=== PATIENT | male | born 1985 | race Caucasian/White ===

== ENCOUNTER 2021-06-20 23:32 | Emergency (ER) | payer SELFPAY ==
[~2021-06-20] VITALS: Ht 175.3 cm; Wt 86.3 kg
[2021-06-21] MEDS ORDERED: NYST15CR TP (00:47)
--- NOTE | 2021-06-21 00:47 | PHYS DOC ---
Past Medical History Past Surgical History: No Surgical History Smoking Status: Never Smoker Alcohol Use: None General Adult EDM: Chief Complaint: SKIN PROBLEM HPI: HPI: Patient is a 36 year old male who presents to the ED today complaining of a rash in between his legs, and groin symptoms began 2 days ago. Denies any fever. Denies any urinary symptoms. Review of Systems: Review of Systems: Constitutional: Denies fever or chills. [] : Denies dysuria. [] Musculoskeletal: Denies back pain or joint pain. [] Integument: Reports rash between the legs and groin region Neurologic: Denies headache, focal weakness or sensory changes. [] Psychiatric: Denies depression or anxiety. [] Heart Score: C/O Chest Pain: N/A Risk Factors: Risk Factors: DM, Current or recent (<one month) smoker, HTN, HLP, family history of CAD, obesity. Risk Scores: Score 0 - 3: 2.5% MACE over next 6 weeks - Discharge Home Score 4 - 6: 20.3% MACE over next 6 weeks - Admit for Clinical Observation Score 7 - 10: 72.7% MACE over next 6 weeks - Early Invasive Strategies Allergies: Allergies: Allergies Coded Allergies Type Severity Reaction Last Updated Verified No Known Drug Allergies 06/21/21 No Physical Exam: PE: Constitutional: Well developed, well nourished, no acute distress, non-toxic appearance. [] Skin: Bilateral groin region, and in between bilateral thighs with macerated erythematous rash consistent with jock itch Back: No tenderness, no CVA tenderness. [] Extremities: No tenderness, no cyanosis, no clubbing, ROM intact, no edema. [] Neurologic: Alert and oriented X 3, normal motor function, normal sensory function, no focal deficits noted. [] Psychologic: Affect normal, judgement normal, mood normal. [] Current Patient Data: Vital Signs: Vital Signs Date Time Temp Pulse Resp B/P (MAP) Pulse Ox O2 Delivery O2 Flow Rate FiO2 06/21/21 00:13 99.7 80 18 143/84 (103) 97 Room Air 99.7 EKG: EKG: [] Radiology/Procedures: Radiology/Procedures: [] Course & Med Decision Making: Course & Med Decision Making Pertinent Labs and Imaging studies reviewed. (See chart for details) This a 36-year-old male patient with Errol itch rash between his legs and groin region. The rash is wet and macerated. Given nystatin powder in the ED. Educated on managing jock itch rash as well as prevention. Follow-up with PCP in 2 weeks Jacob Disclaimer: Jacob Disclaimer: This electronic medical record was generated, in whole or in part, using a voice recognition dictation system. Departure Departure Impression: Primary Impression: Jock itch Disposition: HOME / SELF CARE / HOMELESS Condition: STABLE Patient Instructions: Jock Itch, Fhlg-os-Nhva Additional Instructions: You have jock itch rash, this is a fungal infection. Please use the nystatin powder provided three times a day. When the area starts to dry out you can use the nystatin cream. Avoid using Vaseline or Aquaphor for now. Scripts Nystatin (NYSTATIN) 15 Gm Cream..g. 1 MARE TP TID, #30 GM 3 Refills Prov: WAYNE ANSARI APRN 06/21/21 WAYNE ANSARI APRN June 21, 2021 00:47
[2021-06-21 01:00] VITALS: BP 133/76
[2021-06-21] MEDS ORDERED: NYSTATIN TOPICAL POWDER 15GM BOTTLE. TP ONE (01:30)
[2021-06-22] MEDS ORDERED: fentaNYL PF VIAL 100 MCG/2 ML VIAL ONE (10:31)
[2021-06-22] MEDS ORDERED: ROCURONIUM 50 MG/5 ML VIAL. ONE (10:31)
[2021-06-22] MEDS ORDERED: SEVOFLURANE > 120 MINUTES. IH ONE (10:31)
[2021-06-22] MEDS ORDERED: LIDOCAINE 2% PF 5 ML VIAL. ONE (10:32)
[2021-06-22] MEDS ORDERED: PROPOFOL 10 MG/ML (20ML) VIAL. IV ONE (10:32)
[2021-06-22] MEDS ORDERED: ONDANSETRON PF 4 MG/2 ML VIAL. ONE (10:32)
[2021-06-22] MEDS ORDERED: FAMOTIDINE 20 MG/2 ML VIAL ONE (10:32)
[2021-06-22] MEDS ORDERED: PHENYLEPHRINE 10 MG/ML VIAL. ONE (10:36)
== END 2021-06-21 01:20 | disposition home or self-care (01) ==
LOC: ER 23:32
DX: B35.6 Tinea cruris (principal)
CPT/HCPCS: 99283; J2370; J2405; J2704; J3010; J3490